=== PATIENT | male | born 1955 | race Caucasian/White ===

== ENCOUNTER 2016-08-26 17:31 | Emergency (ER) | payer MEDICAID ==
[2016-08-26] MEDS ORDERED: OPTIRAY 350 100 ML VIAL HMH IV ONE (17:32)
[2016-08-26] MEDS ORDERED: SODIUM CHLORIDE 0.9% 1,000 ML ONE (21:18)
[2016-08-26] MEDS ORDERED: DILAUDID 1 MG/ML AMP ONE (22:22)
[2016-08-26] MEDS ORDERED: ONDANSETRON 4 MG VIAL ONE (22:22)
== END 2016-08-26 22:53 | disposition home or self-care (01) ==
LOC: ER 17:31
DX: R10.9 Unspecified abdominal pain (principal); R11.2 Nausea with vomiting, unspecified; I10 Essential (primary) hypertension; Z79.899 Other long term (current) drug therapy; F17.210 Nicotine dependence, cigarettes, uncomplicated
CPT/HCPCS: 36415; 74177; 80053; 85025; 85610; 86850; 86900; 86901; 96361; 96374; 96375